=== PATIENT | female | born 1985 | race Caucasian/White ===

== ENCOUNTER 2025-05-28 08:16 | Outpatient (CLI) | payer BC, MEDICAID ==
--- NOTE | 2025-05-28 12:48 | RADIOLOGY REPORT ---
INDICATION: ALCOHOLIC CIRRHOSIS OF LIVER WITH ASCITES TECHNIQUE: Multiple real-time sonographic images of the abdomen were obtained. COMPARISON: None FINDINGS: The liver is heterogeneous in echogenicity. Nodular contour of the liver. The liver measure s 13.9 cm. No intrahepatic biliary ductal dilatation is noted. Hepatopetal flow in the main portal ve in with diameter 1.1 cm. The gallbladder wall measures 0.2 cm and is unremarkable. No gallstones or sludge is seen. The comm on duct measures 0.5 cm and is unremarkable. No pericholecystic fluid is noted. Negative sonographic posey's sign. The right kidney measures 10.2 cm. No hydronephrosis. The left kidney measures 9.1 cm. No hydroneph rosis. The spleen measures 16.3 cm, within normal limits. The echogenicity is within normal limits. The pancreas is not well visualized due to obscuration from bowel gas. The visualized portions of the IVC and aorta are grossly unremarkable. No ascites. IMPRESSION: 1. Cirrhosis. Patent portal vein with hepatopetal flow. 2. No gallstones or acute cholecystitis.
== END 2025-05-28 23:59 | disposition home or self-care (01) ==
LOC: RAD 08:16
PROVIDERS: ATTEND Transplant Surgery
DX: K70.31 Alcoholic cirrhosis of liver with ascites (principal)
CPT/HCPCS: 76700; 93976